=== PATIENT | male | born 1985 | race Caucasian/White ===

== ENCOUNTER 2017-01-18 12:27 | Emergency (ER) | payer BC, MEDICAID ==
[2017-01-18 12:44] VITALS: TEMP 98.6; BMI 29.7
--- NOTE | 2017-01-18 13:17 | ED PDOC ---
Arrival/HPI - General Chief Complaint: Back Pain Time Seen by Provider: 01/18/17 12:47 Historian: Patient - History of Present Illness Narrative History of Present Illness (Text): 01/18/17 13:12 31yo male with no PMhx who present with complaint of left sided lower back pain that radiates posteriorly to his lower leg. States pain pain started months ago and became worse over the past few days. He notes that his pain is usually resolved with NSAID, but took NSAID and applied topical voltren without relieve for the past few days. States his pain is usually worse after prolonged standing and with movement. Notes that his job involves standing. He denies trauma, urinary/fecal incontinence, saddle anesthesia, abdominal pain, urinary symptoms, hematuria, any other complaint. Past Medical History - Provider Review Nursing Documentation Reviewed: Yes - Psychiatric Hx Substance Use: No Family/Social History - Physician Review Nursing Documentation Reviewed: Yes Family/Social History: Unknown Family HX Smoking Status: Never Smoked Hx Alcohol Use: No Hx Substance Use: No Allergies/Home Meds Allergies/Adverse Reactions: Allergies No Known Allergies Allergy (Verified 01/18/17 12:47) Review of Systems - Physician Review All systems were reviewed & negative as marked: Yes - Review of Systems Constitutional: Normal Eyes: Normal ENT: Normal Respiratory: Normal Cardiovascular: Normal Gastrointestinal: Normal Genitourinary Male: Normal Musculoskeletal: Back Pain Skin: Normal Neurological: Normal Endocrine: Normal Hemo/Lymphatic: Normal Psychiatric: Normal Physical Exam Vital Signs Reviewed: Yes Vital Signs Temp Pulse Resp BP Pulse Ox 01/18/17 14:14 72 16 140/75 100 01/18/17 13:55 79 18 141/78 98 01/18/17 12:42 98.6 F 88 16 143/88 98 Temperature: Afebrile Blood Pressure: Normal Pulse: Regular Respiratory Rate: Normal Appearance: Positive for: Well-Appearing, Non-Toxic, Comfortable Pain Distress: None Mental Status: Positive for: Alert and Oriented X 3 - Systems Exam Head: Present: Atraumatic, Normocephalic Pupils: Present: PERRL Extroacular Muscles: Present: EOMI Conjunctiva: Present: Normal Mouth: Present: Moist Mucous Membranes Neck: Present: Normal Range of Motion Respiratory/Chest: Present: Clear to Auscultation, Good Air Exchange. No: Respiratory Distress, Accessory Muscle Use Cardiovascular: Present: Regular Rate and Rhythm, Normal S1, S2. No: Murmurs Abdomen: Present: Normal Bowel Sounds. No: Tenderness, Distention, Peritoneal Signs Back: Present: Paraspinal Tenderness (Left paralumbar tenderness), Pain with Leg Raise (LEft ). No: Midline Tenderness Upper Extremity: Present: Normal Inspection. No: Cyanosis, Edema Lower Extremity: Present: Normal Inspection. No: Edema Neurological: Present: GCS=15, CN II-XII Intact, Speech Normal Skin: Present: Warm, Dry, Normal Color. No: Rashes Psychiatric: Present: Alert, Oriented x 3, Normal Insight, Normal Concentration Medical Decision Making ED Course and Treatment: 01/18/17 17:19 LS xray - No acute finding On re evaluation, pt's pain improved. He was ambulatory and NVI. Xray result was DW the pt. He was DC home with a rx of Naprosyn, Tramadol and flexeril. - RAD Interpretation Radiology Orders: 01/18/17 12:47 LS SPINE WITH OBL > 18 YRS OLD [RAD] Stat - Medication Orders Current Medication Orders: Discontinued Medications Dexamethasone (Decadron Inj) 10 mg IVP STAT STA Stop: 01/18/17 13:19 Last Admin: 01/18/17 13:35 Dose: 10 mg Diazepam (Valium) 5 mg IVP ONCE ONE PRN Reason: Protocol Stop: 01/18/17 13:19 Last Admin: 01/18/17 13:35 Dose: 5 mg Ketorolac Tromethamine (Toradol) 30 mg IVP STAT STA Stop: 01/18/17 13:19 Last Admin: 01/18/17 13:34 Dose: 30 mg Disposition/Present on Arrival - Present on Arrival Any Indicators Present on Arrival: No History of DVT/PE: No History of Uncontrolled Diabetes: No Urinary Catheter: No History of Decub. Ulcer: No History Surgical Site Infection Following: None - Disposition Have Diagnosis and Disposition been Completed?: Yes Diagnosis: Back pain Disposition: HOME/ ROUTINE Disposition Time: 13:45 Patient Plan: Discharge Condition: STABLE Discharge Instructions (ExitCare): Back Pain (ED) Additional Instructions: Follow up with your Doctor/orthopedist Rest Return to ED for any new or worsening symptoms Prescriptions: Cyclobenzaprine [Cyclobenzaprine HCl] 10 mg PO TID #12 tab Naproxen [Naprosyn] 500 mg PO BID #20 tablet traMADol [Ultram] 50 mg PO TID #9 tab Referrals: Luly Castañeda MD [Primary Care Provider] - Follow up with primary Humza Sheets III, MD [Medical Doctor] - Follow up with primary
[2017-01-18] MEDS ORDERED: diaZEpam 10 mg/2 ml Inj IVP ONE (13:18)
--- NOTE | 2017-01-18 13:28 | RAD ---
PROCEDURE: Radiographs of the Lumbar Spine. HISTORY: back pain COMPARISON: No prior. FINDINGS: BONES: Normal alignment. No listhesis. No fracture. DISC SPACES: Unremarkable. OTHER FINDINGS: None. IMPRESSION: Unremarkable radiographs of the lumbar spine.
[2017-01-18 14:16] VITALS: BP 140/75; PULSE 72; RESP 16; O2SAT 100
== END 2017-01-18 14:16 | disposition home or self-care (01) ==
LOC: ED 12:27
DX: M54.9 Dorsalgia, unspecified (principal)
CPT/HCPCS: 72110; 96374; 96375; 99284; J1100; J1885; J3360